=== PATIENT | male | born 1945 | race Caucasian/White ===

== ENCOUNTER 2020-09-25 11:41 | Inpatient (IN) | payer MEDICARE, OTHER ==
[~2020-09-25] VITALS: Ht 182.9 cm; Wt 69.2 kg
[2020-09-25 12:17] LABS: Basophils # (auto) 0.1 10 ^3/uL (0-0.2); Basophils % (auto) 1.1 % (0.0-2.0); Eosinophils # (auto) 0.1 10 ^3/uL (0-0.8); Eosinophils % (auto) 2.5 % (0.0-7.0); Hematocrit 43.9 % (41.0-53.0); Hemoglobin 14.9 g/dL (13.5-17.5); Lymphocytes # (auto) 2.2 10 ^3/uL (0.4-5.4); Lymphocytes % (auto) 37.1 % (10.0-50.0); Mean Corpuscular Hemoglobin 27.4 pg (28.0-32.0); Mean Corpuscular Volume 80.6 fL (80.0-100.0); Monocytes # (auto) 0.5 10 ^3/uL (0-1.3); Monocytes % (auto) 7.9 % (0.0-12.0); Neutrophils % (auto) 51.4 % (37.0-80.0); Nucleated Red Blood Cells % 0.2 %; Platelet Count (auto) 267 10^3/uL (140-450); Red Blood Cells 5.45 10^6/uL (4.5-5.90); White Blood Cell 5.9 10^3/uL (4.4-10.8)
[2020-09-25 12:39] LABS: Calcium 8.9 mg/dL (8.5-10.1); Chloride 104 mmol/L (98-107); INR 1.07 (0.9-1.15); Partial Thromboplastin Time 26.3 sec (23.0-31.2); Potassium 3.6 mmol/L (3.5-5.1); Sodium 137 mmol/L (136-145)
[2020-09-25] MEDS ORDERED: NOREPINEPHRINE 8 MG/250ML KIT 0 ML IV ONE (12:40)
[2020-09-25] MEDS ORDERED: NOREPINEPHRINE 8 MG/250ML KIT 250 ML IV SCH (12:45)
[2020-09-25 12:48] LABS: Alanine Aminotransferase 17 U/L (16-61); Albumin 3.3 g/dL (3.4-5.0); Alkaline Phosphatase 81 U/L (45-117); Anion Gap 10 (5-15); Aspartate Aminotransferase 17 U/L (15-37); BUN/Creatinine Ratio 9.8; Bilirubin, Total 0.4 mg/dL (0.2-1.0); Blood Urea Nitrogen 11 mg/dL (7-18); Carbon Dioxide 23 mmol/L (21-32); GFR African American 82 mL/min; GFR Non-African American 68 mL/min; Glucose 88 mg/dL (74-106); Magnesium 2.4 mg/dL (1.6-2.6); Total Protein 7.3 g/dL (6.4-8.2)
[2020-09-25] MEDS ORDERED: MORPHINE SULF INJ 2 MG/ML SYRINGE 1ML IV PRN (15:00)
[2020-09-25] MEDS ORDERED: ASPirin 81 mg TAB PO ONE (15:00)
[2020-09-25] MEDS ORDERED: NITROGLYCERIN 0.4 MG SL TAB SL PRN (15:00)
[2020-09-25] MEDS ORDERED: SODIUM CHLORIDE 0.9% 1,000 ML IV ONE (15:00)
[2020-09-25] MEDS ORDERED: TEMAZEPAM 15 MG CAP PO PRN (15:30)
[2020-09-25] MEDS ORDERED: ACETAMINOPHEN 500 MG TAB PO PRN (15:30)
[2020-09-25] MEDS ORDERED: LACTULOSE 20Gm/30ML SOLN PO PRN (15:30)
[2020-09-25] MEDS ORDERED: ONDANSETRON HCL 4 MG/2 ML VIAL IV PRN (15:30)
[2020-09-25] MEDS ORDERED: traMADol HCL 50 MG TAB PO PRN (15:30)
[2020-09-25] MEDS: SODIUM CHLORIDE 0.9% 1,000 ML IV SCH ×2 (15:30→23:00)
[2020-09-25] MEDS ORDERED: LABETALOL HCL 5 MG/ML ML 20ML VIAL IV PRN (15:30)
[2020-09-25 16:38] LABS: CRP High Sensitivity 1.77 mg/dL (< 0.3)
[2020-09-25 18:08] VITALS: BP 134/88
[2020-09-25 20:00] VITALS: BP 153/78
[2020-09-25] MEDS: ATORVASTATIN 20 MG TAB PO SCH (21:33)
[2020-09-25] MEDS: FAMOTIDINE 20 MG TAB PO SCH (21:33)
[2020-09-25 21:45] VITALS: BP 144/93
[2020-09-25 22:38] LABS: Urine Bacteria NONE SEEN /hpf (None Seen); Urine Blood Negative /uL (Negative); Urine Hyaline Cast FEW /lpf (0 - 2); Urine Mucus FEW (None Seen); Urine Specific Gravity 1.015 (1.001-1.035); Urine WBC 21 /hpf (0 - 3)
[2020-09-25 22:57] LABS: Alcohol, Urine < 3.0 mg/dL (0-10); Amphetamine Screen, Urine NEGATIVE (NEGATIVE); Barbiturate Scree,Urine NEGATIVE (NEGATIVE); Benzodiazephine Screen, Urine NEGATIVE (NEGATIVE); Cannabinoid Screen, Urine POSITIVE (NEGATIVE); Cocaine Screen, Urine NEGATIVE (NEGATIVE); Opiate Scree,Urine NEGATIVE (NEGATIVE); Phencyclidine Screen, Urine NEGATIVE (NEGATIVE)
[2020-09-26 05:00] VITALS: BP 161/84
[2020-09-26] MEDS ORDERED: IOPAMIDOL 76 % (ISOVUE-370) 100ML BTL IV ONE (08:09)
[2020-09-26 08:30] VITALS: BP 153/88
[2020-09-26] MEDS: ENOXAPARIN SOD 40 MG/0.4 ML SYRINGE SC SCH (10:00)
[2020-09-26] MEDS ORDERED: ASPirin 81 mg TAB PO SCH (10:00)
[2020-09-26] MEDS: FAMOTIDINE 20 MG TAB PO SCH ×2 (10:09→22:08)
[2020-09-26] MEDS: ASPirin 81 mg TAB PO SCH (10:09)
[2020-09-26] MEDS: SODIUM CHLORIDE 0.9% 1,000 ML IV SCH ×2 (11:44→21:30)
[2020-09-26 12:30] VITALS: BP 163/94
[2020-09-26 16:34] VITALS: BP 149/88
[2020-09-26 22:00] VITALS: BP 135/82
[2020-09-26] MEDS: ATORVASTATIN 20 MG TAB PO SCH (22:08)
[2020-09-26] MEDS ORDERED: LORazepam 2MG/ML-1ML VIAL IV PRN (23:00)
[2020-09-26 23:26] LABS: Cholesterol 158 mg/dL (< 200)
[2020-09-26 23:29] LABS: HDL Cholesterol 41 mg/dL (40-59); LDL Cholesterol 99 mg/dL (< 100); Triglycerides 113 mg/dL (< 150)
[2020-09-27 05:00] VITALS: BP 146/87
[2020-09-27 05:13] LABS: Basophils # (auto) 0.1 10 ^3/uL (0-0.2); Eosinophils # (auto) 0.1 10 ^3/uL (0-0.8); Eosinophils % (auto) 1.9 % (0.0-7.0); Hematocrit 41.3 % (41.0-53.0); Hemoglobin 14.3 g/dL (13.5-17.5); Lymphocytes # (auto) 1.1 10 ^3/uL (0.4-5.4); Lymphocytes % (auto) 19.1 % (10.0-50.0); Mean Corpuscular Hemoglobin 27.7 pg (28.0-32.0); Mean Corpuscular Hgb Conc. 34.6 g/dL (32.0-36.0); Mean Corpuscular Volume 79.9 fL (80.0-100.0); Monocytes # (auto) 0.6 10 ^3/uL (0-1.3); Monocytes % (auto) 9.7 % (0.0-12.0); Neutrophils % (auto) 68.3 % (37.0-80.0); Nucleated Red Blood Cells % 0.1 %; Platelet Count (auto) 205 10^3/uL (140-450); Red Blood Cells 5.18 10^6/uL (4.5-5.90); Red Cell Distribution Width 14.6 % (11.8-14.3); White Blood Cell 5.8 10^3/uL (4.4-10.8)
[2020-09-27 05:31] LABS: Albumin 3.1 g/dL (3.4-5.0); Anion Gap 7 (5-15); Blood Urea Nitrogen 12 mg/dL (7-18); Calcium 8.4 mg/dL (8.5-10.1); Carbon Dioxide 25 mmol/L (21-32); Chloride 103 mmol/L (98-107); Glucose 76 mg/dL (74-106); Potassium 3.9 mmol/L (3.5-5.1); Sodium 135 mmol/L (136-145)
[2020-09-27 05:33] LABS: Alanine Aminotransferase 16 U/L (16-61); Aspartate Aminotransferase 24 U/L (15-37); BUN/Creatinine Ratio 15.2; GFR African American 123 mL/min; GFR Non-African American 102 mL/min
[2020-09-27 05:38] LABS: Alkaline Phosphatase 70 U/L (45-117); Bilirubin, Total 0.4 mg/dL (0.2-1.0); Total Protein 6.6 g/dL (6.4-8.2)
[2020-09-27 09:00] VITALS: BP 134/79
[2020-09-27] MEDS: SODIUM CHLORIDE 0.9% 1,000 ML IV SCH ×2 (09:55→17:39)
[2020-09-27] MEDS: ASPirin 81 mg TAB PO SCH (11:43)
[2020-09-27] MEDS: FAMOTIDINE 20 MG TAB PO SCH ×2 (11:43→21:27)
[2020-09-27] MEDS: ENOXAPARIN SOD 40 MG/0.4 ML SYRINGE SC SCH (11:44)
[2020-09-27 13:00] VITALS: BP 140/74
[2020-09-27 16:52] VITALS: BP 142/79
[2020-09-27] MEDS: ATORVASTATIN 20 MG TAB PO SCH (21:27)
[2020-09-27 22:00] VITALS: BP 120/75
[2020-09-28] MEDS: SODIUM CHLORIDE 0.9% 1,000 ML IV SCH ×3 (03:30→23:30)
[2020-09-28 05:00] VITALS: BP 108/69
[2020-09-28 07:43] LABS: Basophils # (auto) 0.1 10 ^3/uL (0-0.2); Basophils % (auto) 0.9 % (0.0-2.0); Eosinophils # (auto) 0.2 10 ^3/uL (0-0.8); Eosinophils % (auto) 2.8 % (0.0-7.0); Hematocrit 44.3 % (41.0-53.0); Lymphocytes # (auto) 1.6 10 ^3/uL (0.4-5.4); Mean Corpuscular Hemoglobin 27.2 pg (28.0-32.0); Mean Corpuscular Hgb Conc. 33.9 g/dL (32.0-36.0); Mean Corpuscular Volume 80.3 fL (80.0-100.0); Monocytes # (auto) 0.8 10 ^3/uL (0-1.3); Monocytes % (auto) 11.2 % (0.0-12.0); Neutrophils # (auto) 4.4 10 ^3/uL (1.6-8.6); Neutrophils % (auto) 62.1 % (37.0-80.0); Platelet Count (auto) 227 10^3/uL (140-450); Red Blood Cells 5.52 10^6/uL (4.5-5.90); Red Cell Distribution Width 14.7 % (11.8-14.3); White Blood Cell 7.1 10^3/uL (4.4-10.8)
[2020-09-28 07:58] LABS: Potassium 4.1 mmol/L (3.5-5.1)
[2020-09-28 08:06] LABS: BUN/Creatinine Ratio 18.8; Calcium 8.7 mg/dL (8.5-10.1)
[2020-09-28 09:00] VITALS: BP 121/65
[2020-09-28] MEDS: FAMOTIDINE 20 MG TAB PO SCH ×2 (09:20→21:52)
[2020-09-28] MEDS: ASPirin 81 mg TAB PO SCH (09:20)
[2020-09-28] MEDS: ENOXAPARIN SOD 40 MG/0.4 ML SYRINGE SC SCH (09:21)
[2020-09-28 13:00] VITALS: BP 122/52
[2020-09-28 17:00] VITALS: BP 110/77
[2020-09-28 20:00] VITALS: BP 113/75
[2020-09-28] MEDS: ATORVASTATIN 20 MG TAB PO SCH (21:52)
[2020-09-28 22:00] VITALS: BP 113/75
[2020-09-29 05:00] VITALS: BP 127/76
[2020-09-29 06:49] LABS: Basophils # (auto) 0.1 10 ^3/uL (0-0.2); Basophils % (auto) 1.2 % (0.0-2.0); Eosinophils # (auto) 0.2 10 ^3/uL (0-0.8); Eosinophils % (auto) 3.5 % (0.0-7.0); Hematocrit 43.8 % (41.0-53.0); Hemoglobin 14.9 g/dL (13.5-17.5); Lymphocytes # (auto) 1.6 10 ^3/uL (0.4-5.4); Lymphocytes % (auto) 27.2 % (10.0-50.0); Mean Corpuscular Hemoglobin 27.4 pg (28.0-32.0); Mean Corpuscular Hgb Conc. 33.9 g/dL (32.0-36.0); Mean Corpuscular Volume 80.9 fL (80.0-100.0); Monocytes # (auto) 0.7 10 ^3/uL (0-1.3); Neutrophils # (auto) 3.3 10 ^3/uL (1.6-8.6); Neutrophils % (auto) 56.1 % (37.0-80.0); Nucleated Red Blood Cells % 0.1 %; Platelet Count (auto) 238 10^3/uL (140-450); Red Blood Cells 5.42 10^6/uL (4.5-5.90); Red Cell Distribution Width 14.7 % (11.8-14.3); White Blood Cell 5.8 10^3/uL (4.4-10.8)
[2020-09-29 07:12] LABS: Potassium 4.2 mmol/L (3.5-5.1)
[2020-09-29 07:18] LABS: BUN/Creatinine Ratio 20.7; Bilirubin, Total 0.5 mg/dL (0.2-1.0); Total Protein 6.8 g/dL (6.4-8.2)
[2020-09-29 08:57] VITALS: BP 111/55
[2020-09-29] MEDS: ASPirin 81 mg TAB PO SCH (09:42)
[2020-09-29] MEDS: SODIUM CHLORIDE 0.9% 1,000 ML IV SCH (09:42)
[2020-09-29] MEDS: FAMOTIDINE 20 MG TAB PO SCH (09:43)
[2020-09-29] MEDS: ENOXAPARIN SOD 40 MG/0.4 ML SYRINGE SC SCH (09:43)
[2020-09-29 13:33] VITALS: BP 127/78
== END 2020-09-29 16:15 | disposition home or self-care (01) | DRG 312 ==
LOC: ER 11:41 → TELE-EAST 11:42 → TELE-WESTW 09-26 05:35
PROVIDERS: ADMIT Internal Medicine; ATTEND Internal Medicine
DX: R55 Syncope and collapse (principal); E87.1 Hypo-osmolality and hyponatremia; G45.9 Transient cerebral ischemic attack, unspecified; I65.22 Occlusion and stenosis of left carotid artery; I45.10 Unspecified right bundle-branch block; I95.9 Hypotension, unspecified; J44.9 Chronic obstructive pulmonary disease, unspecified; I10 Essential (primary) hypertension; F17.210 Nicotine dependence, cigarettes, uncomplicated; M47.812 Spondylosis without myelopathy or radiculopathy, cervical region; S00.83XA Contusion of other part of head, initial encounter; Z20.822 Contact with and (suspected) exposure to COVID-19; Z79.82 Long term (current) use of aspirin; Z79.899 Other long term (current) drug therapy; Z82.49 Family history of ischemic heart disease and other diseases of the circulatory system; W18.30XA Fall on same level, unspecified, initial encounter; Y93.89 Activity, other specified; Y92.89 Other specified places as the place of occurrence of the external cause; Y99.8 Other external cause status; Z90.49 Acquired absence of other specified parts of digestive tract; I67.2 Cerebral atherosclerosis; M48.02 Spinal stenosis, cervical region; F12.90 Cannabis use, unspecified, uncomplicated
CPT/HCPCS: 36415; 70450; 70551; 71250; 71275; 72125; 80048; 80053; 80061; 80307; 81001; 82550; 83735; 83880; 84443; 84484; 85025; 85379; 85610; 85652; 85730; 86141; 86850; 86900; 86901; 87426; 93005; 93306; 93886; 95819; 96360; G0378

== ENCOUNTER 2022-05-26 09:47 | Inpatient (IN) | payer MEDICARE, MEDICAID ==
[~2022-05-26] VITALS: Ht 182.9 cm; Wt 67.6 kg
[2022-05-26 10:43] LABS: Basophils # (auto) 0 10 ^3/uL (0-0.2); Eosinophils # (auto) 0 10 ^3/uL (0-0.8); Eosinophils % (auto) 0.2 % (0.0-7.0); Lymphocytes # (auto) 0.6 10 ^3/uL (0.4-5.4); Lymphocytes % (auto) 12.4 % (10.0-50.0); Mean Corpuscular Hemoglobin 26.9 pg (28.0-32.0); Monocytes # (auto) 0.6 10 ^3/uL (0-1.3); Monocytes % (auto) 11.4 % (0.0-12.0)
[2022-05-26 10:46] LABS: Basophils % (auto) 0.4 % (0.0-2.0); Hematocrit 47.5 % (41.0-53.0); Hemoglobin 15.7 g/dL (13.5-17.5); Mean Corpuscular Volume 81.6 fL (80.0-100.0); Neutrophils # (auto) 3.8 10 ^3/uL (1.6-8.6); Neutrophils % (auto) 75.6 % (37.0-80.0); Red Blood Cells 5.82 10^6/uL (4.5-5.90); Red Cell Distribution Width 14.8 % (11.8-14.3)
[2022-05-26 10:56] LABS: Albumin 3.6 g/dL (3.4-5.0); Potassium 4.1 mmol/L (3.5-5.1)
[2022-05-26 10:59] LABS: BUN/Creatinine Ratio 15.6; Bilirubin, Total 0.5 mg/dL (0.2-1.0); Total Protein 7.2 g/dL (6.4-8.2)
[2022-05-26] MEDS ORDERED: SODIUM CHLORIDE 0.9% 500 ML IVB ONE (12:30)
[2022-05-26] MEDS ORDERED: SODIUM CHLORIDE 0.9% 1,000 ML IV ONE (12:30)
[2022-05-26 13:19] LABS: Magnesium 2.4 mg/dL (1.6-2.6)
[2022-05-26] MEDS ORDERED: DOCUSATE SOD 100 MG CAP PO PRN (19:15)
[2022-05-26] MEDS ORDERED: ONDANSETRON HCL 4 MG/2 ML VIAL IV PRN (19:15)
[2022-05-26] MEDS ORDERED: HYDROcodone-ACET 5/325MG TAB PO PRN (19:15)
[2022-05-26 20:06] LABS: Cholesterol 209 mg/dL (< 200)
[2022-05-26 20:20] LABS: Creatine Kinase IFCC 1268 U/L (39-308); HDL Cholesterol 48 mg/dL (40-59); LDL Cholesterol 143 mg/dL (< 100); Triglycerides 124 mg/dL (< 150)
[2022-05-26] MEDS: ATORVASTATIN 20 MG TAB PO SCH (22:00)
[2022-05-27 00:39] VITALS: BP 133/85
[2022-05-27 01:52] VITALS: BP 133/85
[2022-05-27] MEDS: SODIUM CHLORIDE 0.9% 1,000 ML IV SCH ×2 (03:59→11:55)
[2022-05-27 05:00] VITALS: BP 141/71
[2022-05-27 06:25] LABS: Basophils # (auto) 0.1 10 ^3/uL (0-0.2); Basophils % (auto) 1.3 % (0.0-2.0); Eosinophils # (auto) 0.1 10 ^3/uL (0-0.8); Eosinophils % (auto) 1.5 % (0.0-7.0); Hematocrit 45.1 % (41.0-53.0); Hemoglobin 15.3 g/dL (13.5-17.5); Lymphocytes # (auto) 1.4 10 ^3/uL (0.4-5.4); Lymphocytes % (auto) 33.3 % (10.0-50.0); Mean Corpuscular Hemoglobin 27.5 pg (28.0-32.0); Mean Corpuscular Hgb Conc. 33.8 g/dL (32.0-36.0); Mean Corpuscular Volume 81.4 fL (80.0-100.0); Monocytes # (auto) 0.4 10 ^3/uL (0-1.3); Monocytes % (auto) 10.9 % (0.0-12.0); Neutrophils # (auto) 2.2 10 ^3/uL (1.6-8.6); Nucleated Red Blood Cells % 0.1 %; Red Blood Cells 5.54 10^6/uL (4.5-5.90); White Blood Cell 4.1 10^3/uL (4.4-10.8)
[2022-05-27 06:55] LABS: Potassium 4.5 mmol/L (3.5-5.1)
[2022-05-27 07:01] LABS: Albumin 3.4 g/dL (3.4-5.0); BUN/Creatinine Ratio 28.6; Bilirubin, Total 0.5 mg/dL (0.2-1.0); Total Protein 6.8 g/dL (6.4-8.2)
[2022-05-27] MEDS: NICOTINE 14 MG/24HR TOPICAL PATCH TD SCH (10:00)
[2022-05-27] MEDS: PANTOPRAZOLE 40 MG/10 ML VIAL INJ IV SCH (10:18)
[2022-05-27] MEDS: ENSURE CLEAR Mixed Berry 8oz Carton PO SCH ×2 (12:00→18:00)
[2022-05-27 12:46] LABS: Urine Bacteria FEW /hpf (None Seen); Urine Blood Negative /uL (Negative); Urine Hyaline Cast MANY /lpf (0 - 2); Urine Mucus FEW (None Seen); Urine Specific Gravity 1.026 (1.001-1.035); Urine WBC 3 /hpf (0 - 3)
[2022-05-27 12:48] LABS: Creatinine, Urine 243 mg/dL (30.0-125.0); Sodium Urine 28 mmol/L (40-220)
[2022-05-27 13:00] VITALS: BP 130/73
[2022-05-27 17:00] VITALS: BP 118/71
[2022-05-27 22:00] VITALS: BP 107/69
[2022-05-27] MEDS: ATORVASTATIN 20 MG TAB PO SCH (23:00)
[2022-05-28 05:00] VITALS: BP 132/74
[2022-05-28] MEDS: SODIUM CHLORIDE 0.9% 1,000 ML IV SCH (05:47)
[2022-05-28 05:59] LABS: Basophils # (auto) 0 10 ^3/uL (0-0.2); Eosinophils # (auto) 0.1 10 ^3/uL (0-0.8); Hemoglobin 13.5 g/dL (13.5-17.5); Monocytes # (auto) 0.4 10 ^3/uL (0-1.3); Nucleated Red Blood Cells % 0.1 %; White Blood Cell 4.2 10^3/uL (4.4-10.8)
[2022-05-28 06:01] LABS: Basophils % (auto) 0.4 % (0.0-2.0); Eosinophils % (auto) 2.5 % (0.0-7.0); Hematocrit 41.5 % (41.0-53.0); Lymphocytes # (auto) 1.2 10 ^3/uL (0.4-5.4); Lymphocytes % (auto) 28.7 % (10.0-50.0); Mean Corpuscular Hemoglobin 26.5 pg (28.0-32.0); Mean Corpuscular Hgb Conc. 32.5 g/dL (32.0-36.0); Mean Corpuscular Volume 81.5 fL (80.0-100.0); Monocytes % (auto) 10.1 % (0.0-12.0); Neutrophils # (auto) 2.4 10 ^3/uL (1.6-8.6); Neutrophils % (auto) 58.3 % (37.0-80.0); Red Blood Cells 5.09 10^6/uL (4.5-5.90); Red Cell Distribution Width 14.9 % (11.8-14.3)
[2022-05-28 06:26] LABS: BUN/Creatinine Ratio 26.3; Calcium 8.3 mg/dL (8.5-10.1); Potassium 4.1 mmol/L (3.5-5.1)
[2022-05-28] MEDS: ENSURE CLEAR Mixed Berry 8oz Carton PO SCH ×3 (08:00→18:00)
[2022-05-28 08:53] VITALS: BP 136/79
[2022-05-28] MEDS ORDERED: ASPirin 81 mg TAB PO ONE (10:00)
[2022-05-28] MEDS: NICOTINE 14 MG/24HR TOPICAL PATCH TD SCH (11:00)
[2022-05-28] MEDS: ASPirin 81 mg TAB PO SCH (11:00)
[2022-05-28] MEDS: PANTOPRAZOLE 40 MG/10 ML VIAL INJ IV SCH (11:00)
[2022-05-28 12:50] VITALS: BP 119/69
[2022-05-28 17:04] VITALS: BP 136/77
[2022-05-28 20:06] LABS: Free T4 (Free Thyroxine) 0.91 ng/dL (0.89-1.76)
[2022-05-28 21:51] VITALS: BP 125/78
[2022-05-28] MEDS: ATORVASTATIN 20 MG TAB PO SCH (22:52)
[2022-05-29 04:33] VITALS: BP 144/85
[2022-05-29 06:17] LABS: Basophils # (auto) 0 10 ^3/uL (0-0.2); Basophils % (auto) 0.4 % (0.0-2.0); Eosinophils # (auto) 0.1 10 ^3/uL (0-0.8); Eosinophils % (auto) 1.8 % (0.0-7.0); Hemoglobin 12.8 g/dL (13.5-17.5); Lymphocytes # (auto) 1.1 10 ^3/uL (0.4-5.4); Lymphocytes % (auto) 24.2 % (10.0-50.0); Mean Corpuscular Hemoglobin 27.1 pg (28.0-32.0); Mean Corpuscular Hgb Conc. 33.7 g/dL (32.0-36.0); Mean Corpuscular Volume 80.4 fL (80.0-100.0); Monocytes # (auto) 0.5 10 ^3/uL (0-1.3); Monocytes % (auto) 11.3 % (0.0-12.0); Neutrophils # (auto) 2.7 10 ^3/uL (1.6-8.6); Neutrophils % (auto) 62.3 % (37.0-80.0); Red Blood Cells 4.73 10^6/uL (4.5-5.90); Red Cell Distribution Width 14.3 % (11.8-14.3); White Blood Cell 4.4 10^3/uL (4.4-10.8)
[2022-05-29 06:45] LABS: BUN/Creatinine Ratio 22.1
[2022-05-29] MEDS: ENSURE CLEAR Mixed Berry 8oz Carton PO SCH ×3 (08:22→18:02)
[2022-05-29 09:00] VITALS: BP 146/81
[2022-05-29] MEDS: NICOTINE 14 MG/24HR TOPICAL PATCH TD SCH (09:34)
[2022-05-29] MEDS: ASPirin 81 mg TAB PO SCH (09:49)
[2022-05-29] MEDS: PANTOPRAZOLE 40 MG/10 ML VIAL INJ IV SCH (09:49)
[2022-05-29] MEDS ORDERED: GADOTERATE MEG 7.5 MMOL/15ml INJ (0.5MMOL/ml) IV ONE (11:43)
[2022-05-29 13:00] VITALS: BP 125/75
[2022-05-29 17:00] VITALS: BP 122/71
[2022-05-29 22:00] VITALS: BP 123/64
[2022-05-29] MEDS: ATORVASTATIN 20 MG TAB PO SCH (22:00)
[2022-05-30 05:00] VITALS: BP 120/73
[2022-05-30 09:00] VITALS: BP 120/62
[2022-05-30] MEDS: ENSURE CLEAR Mixed Berry 8oz Carton PO SCH ×3 (09:00→17:52)
[2022-05-30] MEDS: PANTOPRAZOLE 40 MG/10 ML VIAL INJ IV SCH (09:28)
[2022-05-30] MEDS: NICOTINE 14 MG/24HR TOPICAL PATCH TD SCH (09:29)
[2022-05-30] MEDS: ASPirin 81 mg TAB PO SCH (09:29)
[2022-05-30 12:55] VITALS: BP 124/71
[2022-05-30 16:59] VITALS: BP 101/63
[2022-05-30] MEDS: ATORVASTATIN 20 MG TAB PO SCH (21:05)
[2022-05-30 22:00] VITALS: BP 115/70
[2022-05-31 05:00] VITALS: BP 120/67
[2022-05-31] MEDS: ENSURE CLEAR Mixed Berry 8oz Carton PO SCH ×2 (08:20→12:40)
[2022-05-31 08:28] VITALS: BP 150/65
[2022-05-31 09:00] LABS: Folate (Folic Acid) 14.49 ng/mL (5.38-24)
[2022-05-31] MEDS: NICOTINE 14 MG/24HR TOPICAL PATCH TD SCH (09:56)
[2022-05-31] MEDS: ASPirin 81 mg TAB PO SCH (09:56)
[2022-05-31 13:00] VITALS: BP 109/72
[2022-05-31 15:02] VITALS: BP 109/72
== END 2022-05-31 16:00 | DRG 947 ==
LOC: ER 09:47 → EDBD 09:47 → OVERFLOW 19:07 → EAST 22:38
PROVIDERS: ADMIT Nurse Practitioner Family; ATTEND Internal Medicine Pulmonary Disease
DX: R53.1 Weakness (principal); E43 Unspecified severe protein-calorie malnutrition; G93.41 Metabolic encephalopathy; F50.00 Anorexia nervosa, unspecified; N17.9 Acute kidney failure, unspecified; J98.11 Atelectasis; Z68.1 Body mass index [BMI] 19.9 or less, adult; I65.23 Occlusion and stenosis of bilateral carotid arteries; J43.2 Centrilobular emphysema; N18.30 Chronic kidney disease, stage 3 unspecified; E86.0 Dehydration; E78.5 Hyperlipidemia, unspecified; F17.210 Nicotine dependence, cigarettes, uncomplicated; J32.9 Chronic sinusitis, unspecified; N28.1 Cyst of kidney, acquired; R29.6 Repeated falls; R53.81 Other malaise; R91.1 Solitary pulmonary nodule; K80.20 Calculus of gallbladder without cholecystitis without obstruction; E55.9 Vitamin D deficiency, unspecified; Z82.49 Family history of ischemic heart disease and other diseases of the circulatory system; Z86.59 Personal history of other mental and behavioral disorders; Z91.81 History of falling
CPT/HCPCS: 36415; 70450; 70551; 70553; 71045; 71250; 73030; 73080; 73090; 74176; 80048; 80053; 80061; 81001; 82550; 82570; 82607; 82746; 83690; 83735; 84300; 84439; 84443; 84484; 85025; 87426; 93005; 93886; 95819; 97110; 97116; 97530; C9113; G0378

== ENCOUNTER 2022-07-23 21:16 | Inpatient (IN) | payer MEDICARE, MEDICAID ==
[~2022-07-23] VITALS: Ht 182.9 cm; Wt 75.6 kg
[2022-07-24] MEDS ORDERED: ONDANSETRON HCL 4 MG/2 ML VIAL IV ONE ×2 (02:00→06:45)
[2022-07-24] MEDS ORDERED: MORPHINE SULFATE 4 MG/ML SYR/VIAL IV ONE (02:00)
[2022-07-24] MEDS ORDERED: HYDROmorphone HCL 2 MG/ML VL/or syr IV ONE (06:45)
[2022-07-24] MEDS ORDERED: DOCUSATE SOD 100 MG CAP PO PRN (10:00)
[2022-07-24] MEDS ORDERED: ALBUTEROL SULF 2.5 MG/0.5ML(0.5%) NEB SOLN NEB PRN (10:15)
[2022-07-24] MEDS ORDERED: IPRATROPIUM BROM 0.5 MG/2.5ML INH SOL NEB PRN (10:15)
[2022-07-24 11:15] LABS: INR 1.08 (0.9-1.15)
[2022-07-24] MEDS: SODIUM CHLORIDE 0.9% 1,000 ML IV SCH (11:27)
[2022-07-24] MEDS: ENOXAPARIN SOD 40 MG/0.4 ML SYRINGE SC SCH (13:00)
[2022-07-24 13:38] LABS: Urine Bacteria NONE SEEN /hpf (None Seen); Urine Blood Negative /uL (Negative); Urine Mucus FEW (None Seen); Urine WBC <1 /hpf (0 - 3)
[2022-07-24] MEDS: MORPHINE SULFATE INJ 2 MG/ml SYRG IV PRN ×2 (14:14→23:09)
[2022-07-24] MEDS: ONDANSETRON HCL 4 MG/2 ML VIAL IV PRN ×2 (14:14→23:09)
[2022-07-24 23:50] VITALS: BP 116/70
[2022-07-25] MEDS: SODIUM CHLORIDE 0.9% 1,000 ML IV SCH (00:18)
[2022-07-25] MEDS: ONDANSETRON HCL 4 MG/2 ML VIAL IV PRN ×3 (03:11→12:17)
[2022-07-25] MEDS: MORPHINE SULFATE INJ 2 MG/ml SYRG IV PRN ×4 (03:12→21:12)
[2022-07-25 06:48] LABS: Basophils # (auto) 0 10 ^3/uL (0-0.2); Basophils % (auto) 0.5 % (0.0-2.0); Eosinophils # (auto) 0.2 10 ^3/uL (0-0.8); Eosinophils % (auto) 1.8 % (0.0-7.0); Hemoglobin 14.8 g/dL (13.5-17.5); Lymphocytes # (auto) 0.9 10 ^3/uL (0.4-5.4); Lymphocytes % (auto) 10.5 % (10.0-50.0); Mean Corpuscular Hemoglobin 28.2 pg (28.0-32.0); Mean Corpuscular Hgb Conc. 34.3 g/dL (32.0-36.0); Mean Corpuscular Volume 82.2 fL (80.0-100.0); Monocytes # (auto) 0.6 10 ^3/uL (0-1.3); Monocytes % (auto) 7.3 % (0.0-12.0); Neutrophils % (auto) 79.9 % (37.0-80.0); Red Blood Cells 5.23 10^6/uL (4.5-5.90); Red Cell Distribution Width 15.4 % (11.8-14.3); White Blood Cell 8.7 10^3/uL (4.4-10.8)
[2022-07-25 06:56] LABS: Albumin 3.5 g/dL (3.4-5.0); Calcium 9.2 mg/dL (8.5-10.1)
[2022-07-25 07:00] LABS: BUN/Creatinine Ratio 15.6; Bilirubin, Total 0.8 mg/dL (0.2-1.0); Total Protein 7.3 g/dL (6.4-8.2)
[2022-07-25] MEDS: ENOXAPARIN SOD 40 MG/0.4 ML SYRINGE SC SCH (08:49)
[2022-07-25] MEDS: PANTOPRAZOLE 40 MG/10 ML VIAL INJ IV SCH (09:13)
[2022-07-25] MEDS: D5W/SOD CHLO 0.9% 1,000 ML IV SCH (14:27)
[2022-07-25 17:45] VITALS: BP 151/88
[2022-07-25 22:00] VITALS: BP 137/51
[2022-07-26] MEDS: HYDROmorphone HCL 2 MG/ML VL/or syr IV PRN (00:27)
[2022-07-26] MEDS: D5W/SOD CHLO 0.9% 1,000 ML IV SCH ×4 (03:09→19:42)
[2022-07-26 05:00] VITALS: BP 132/72
[2022-07-26] MEDS ORDERED: ALBUTEROL MEDNEB 2.5 mg/3ml NEB ONE (05:53)
[2022-07-26] MEDS ORDERED: DexAMETHasone SOD PHOS 4 MG/1ML SDV INJ ONE (06:44)
[2022-07-26] MEDS ORDERED: BUPIVACAINE W/ EPINEPH 0.25% INJ 50ML MDV ONE ×2 (06:44→07:05)
[2022-07-26] MEDS ORDERED: EPINEPHrine HCL 1 MG/1 ML AMP ONE (06:45)
[2022-07-26] MEDS ORDERED: PROPOFOL 10 MG/ML 20 ML IV ONE ×4 (06:55→10:25)
[2022-07-26] MEDS ORDERED: ONDANSETRON HCL 4 MG/2 ML VIAL ONE (06:56)
[2022-07-26] MEDS ORDERED: DexAMETHasone SOD PHOS 10MG/1ML VIAL INJ ONE (06:56)
[2022-07-26] MEDS ORDERED: GLYCOPYRROLATE 0.2 MG/ML 1ML VIAL ONE (06:56)
[2022-07-26] MEDS ORDERED: KETOROLAC TROMETH 30 MG/ML 1ML VIAL ONE ×2 (06:56→07:00)
[2022-07-26] MEDS: BUPIVACAINE W/ EPINEPH 0.25% INJ 50ML MDV ONE ×2 (06:58→10:18)
[2022-07-26] MEDS ORDERED: TRANEXAMIC ACID 20 ML ONE (06:58)
[2022-07-26] MEDS: VANCOMYCIN HCL 1000 MG VL ONE ×2 (06:59→10:19)
[2022-07-26] MEDS ORDERED: MORPHINE SULF PF 5 MG/10 ML VIAL ONE (07:00)
[2022-07-26] MEDS ORDERED: ceFAZolin 1GM/50ML 100 ML IV ONE (07:02)
[2022-07-26] MEDS ORDERED: LIDOCAINE 2% JELLY 11ml (GLYDO) ONE (07:05)
[2022-07-26] MEDS ORDERED: SODIUM CHLORIDE LOCK 20 ML ONE (07:24)
[2022-07-26] MEDS ORDERED: PHENYLEPHRINE HCL 10 MG/ML VL ONE (08:45)
[2022-07-26] MEDS ORDERED: ePHEDrine SULFATE 50 MG/ML AMP ONE (09:49)
[2022-07-26] MEDS ORDERED: SODIUM CHLORIDE LOCK 10 ML ONE (09:49)
[2022-07-26] MEDS: ENOXAPARIN SOD 40 MG/0.4 ML SYRINGE SC SCH (10:50)
[2022-07-26] MEDS: PANTOPRAZOLE 40 MG/10 ML VIAL INJ IV SCH (10:50)
[2022-07-26] MEDS ORDERED: LABETALOL HCL 5 MG/ML 4ML SYRINGE IV PRN (11:30)
[2022-07-26] MEDS ORDERED: ePHEDrine SULFATE 50 MG/ML AMP IV PRN (11:30)
[2022-07-26] MEDS ORDERED: NALOXONE HCL 0.4 MG/ML VIAL IV PRN (11:30)
[2022-07-26] MEDS ORDERED: HYDROmorphone HCL 2 MG/ML VL/or syr IV PRN (11:30)
[2022-07-26] MEDS ORDERED: ONDANSETRON HCL 4 MG/2 ML VIAL IV PRN (11:30)
[2022-07-26] MEDS ORDERED: FLUMAZENIL 0.1 MG/ML INJ 10ML MDV IV PRN (11:30)
[2022-07-26] MEDS ORDERED: fentaNYL CITRATE 100 MCG/2 ML VL IV PRN (11:30)
[2022-07-26] MEDS ORDERED: hydrALAZINE HCL 20 MG/ML VL IV PRN (11:30)
[2022-07-26 12:40] VITALS: BP 99/56
[2022-07-26] MEDS ORDERED: ACETAMINOPHEN 500 MG TAB PO PRN ×2 (13:30→14:00)
[2022-07-26 13:35] VITALS: BP 107/61
[2022-07-26] MEDS: ceFAZolin 2 GM in D5W 5% 100 ML IV SCH ×2 (15:49→22:04)
[2022-07-26 16:38] VITALS: BP 105/61
[2022-07-26] MEDS: KETOROLAC TROMETH 30 MG/ML 1ML VIAL IV PRN (16:39)
[2022-07-26 21:56] VITALS: BP 109/59
[2022-07-27] MEDS: KETOROLAC TROMETH 30 MG/ML 1ML VIAL IV PRN ×2 (00:43→10:23)
[2022-07-27 05:00] VITALS: BP 143/74
[2022-07-27] MEDS: ceFAZolin 2 GM in D5W 5% 100 ML IV SCH (05:45)
[2022-07-27] MEDS: HYDROmorphone HCL 2 MG/ML VL/or syr IV PRN ×3 (05:45→19:08)
[2022-07-27 07:18] LABS: Basophils # (auto) 0 10 ^3/uL (0-0.2); Basophils % (auto) 0.2 % (0.0-2.0); Eosinophils # (auto) 0 10 ^3/uL (0-0.8); Eosinophils % (auto) 0.1 % (0.0-7.0); Hematocrit 31.9 % (41.0-53.0); Hemoglobin 11.1 g/dL (13.5-17.5); Lymphocytes # (auto) 0.6 10 ^3/uL (0.4-5.4); Lymphocytes % (auto) 6.3 % (10.0-50.0); Mean Corpuscular Hemoglobin 28.5 pg (28.0-32.0); Mean Corpuscular Hgb Conc. 34.7 g/dL (32.0-36.0); Monocytes # (auto) 0.9 10 ^3/uL (0-1.3); Monocytes % (auto) 9.7 % (0.0-12.0); Neutrophils # (auto) 7.6 10 ^3/uL (1.6-8.6); Neutrophils % (auto) 83.7 % (37.0-80.0); Nucleated Red Blood Cells % 0.1 %; Red Blood Cells 3.89 10^6/uL (4.5-5.90); Red Cell Distribution Width 15.3 % (11.8-14.3); White Blood Cell 9.1 10^3/uL (4.4-10.8)
[2022-07-27 07:34] LABS: Potassium 3.9 mmol/L (3.5-5.1)
[2022-07-27 07:50] LABS: Albumin 2.4 g/dL (3.4-5.0); Bilirubin, Total 0.3 mg/dL (0.2-1.0); Calcium 7.8 mg/dL (8.5-10.1); Total Protein 4.9 g/dL (6.4-8.2)
[2022-07-27 08:05] VITALS: BP 101/62
[2022-07-27] MEDS: D5W/SOD CHLO 0.9% 1,000 ML IV SCH ×3 (08:05→21:30)
[2022-07-27 09:00] VITALS: BP 101/62
[2022-07-27] MEDS: PANTOPRAZOLE 40 MG/10 ML VIAL INJ IV SCH (10:15)
[2022-07-27] MEDS: BACLOFEN 10 MG TAB PO PRN ×2 (10:15→19:07)
[2022-07-27] MEDS: ENOXAPARIN SOD 40 MG/0.4 ML SYRINGE SC SCH (10:15)
[2022-07-27 13:00] VITALS: BP 111/53
[2022-07-27 16:56] VITALS: BP 111/75
[2022-07-27 22:00] VITALS: BP 129/72
[2022-07-28] MEDS: BACLOFEN 10 MG TAB PO PRN (02:25)
[2022-07-28] MEDS: HYDROmorphone HCL 2 MG/ML VL/or syr IV PRN ×2 (02:25→08:28)
[2022-07-28 05:00] VITALS: BP 149/71
[2022-07-28] MEDS: D5W/SOD CHLO 0.9% 1,000 ML IV SCH ×2 (06:23→14:00)
[2022-07-28 07:56] LABS: Basophils # (auto) 0 10 ^3/uL (0-0.2); Basophils % (auto) 0.3 % (0.0-2.0); Eosinophils # (auto) 0.3 10 ^3/uL (0-0.8); Eosinophils % (auto) 4.2 % (0.0-7.0); Hematocrit 34.6 % (41.0-53.0); Hemoglobin 11.7 g/dL (13.5-17.5); Lymphocytes # (auto) 1.1 10 ^3/uL (0.4-5.4); Lymphocytes % (auto) 16.1 % (10.0-50.0); Mean Corpuscular Hemoglobin 27.8 pg (28.0-32.0); Mean Corpuscular Hgb Conc. 33.7 g/dL (32.0-36.0); Mean Corpuscular Volume 82.4 fL (80.0-100.0); Monocytes # (auto) 0.8 10 ^3/uL (0-1.3); Monocytes % (auto) 11.2 % (0.0-12.0); Neutrophils # (auto) 4.9 10 ^3/uL (1.6-8.6); Neutrophils % (auto) 68.2 % (37.0-80.0); Red Cell Distribution Width 15.5 % (11.8-14.3); White Blood Cell 7.1 10^3/uL (4.4-10.8)
[2022-07-28 09:00] VITALS: BP 149/80
[2022-07-28] MEDS: ENOXAPARIN SOD 40 MG/0.4 ML SYRINGE SC SCH (11:06)
[2022-07-28] MEDS: PANTOPRAZOLE 40 MG/10 ML VIAL INJ IV SCH (11:06)
[2022-07-28 13:00] VITALS: BP 103/63
[2022-07-28 17:00] VITALS: BP 157/90
[2022-07-28] MEDS ORDERED: ceFAZolin 2 GM in D5W 5% 100 ML IV ONE (17:45)
== END 2022-07-28 19:20 | DRG 521 ==
LOC: EDUNIT# 21:16 → ER 21:28 → OVERFLOW 07-24 09:48 → CENTRAL 07-25 17:53
PROVIDERS: ADMIT Nurse Practitioner Family; ATTEND Family Medicine
PROC: 0SRR0J9 Replacement of Right Hip Joint, Femoral Surface with Synthetic Substitute, Cemented, Open Approach (ICD-10-PCS; principal; 2022-07-26 07:59)
DX: S72.011A Unspecified intracapsular fracture of right femur, initial encounter for closed fracture (principal); E43 Unspecified severe protein-calorie malnutrition; R09.02 Hypoxemia; F17.210 Nicotine dependence, cigarettes, uncomplicated; Z20.822 Contact with and (suspected) exposure to COVID-19; R91.1 Solitary pulmonary nodule; W18.39XA Other fall on same level, initial encounter; E86.0 Dehydration; R29.6 Repeated falls; D64.9 Anemia, unspecified; Z82.49 Family history of ischemic heart disease and other diseases of the circulatory system; Z71.6 Tobacco abuse counseling; Z68.22 Body mass index [BMI] 22.0-22.9, adult; Y93.89 Activity, other specified; Y99.8 Other external cause status; Y92.098 Other place in other non-institutional residence as the place of occurrence of the external cause
CPT/HCPCS: 36415; 71045; 72170; 72192; 73030; 73501; 80053; 81001; 83880; 85025; 85610; 86850; 86900; 86901; 87040; 87077; 87186; 87426; 93005; 94640; 96361; 96374; 96375; 96376; 97163; C9113; G0378; J0171; J0690; J1100; J1885; J2405; J2704; J7060